=== PATIENT | male | born 2000 | race Caucasian/White ===

== ENCOUNTER 2021-02-04 20:24 | Emergency (ER) | payer OTHER ==
[~2021-02-04] VITALS: Ht 175.3 cm; Wt 81.6 kg
[2021-02-04 20:25] VITALS: BP 158/70
== END 2021-02-04 23:09 | disposition short-term general hospital (02) ==
LOC: EDBD 20:24 → ER 20:28 → EEVIPCON 20:28 → ER 23:09
DX: S09.8XXA Other specified injuries of head, initial encounter (principal); Y08.89XA Assault by other specified means, initial encounter; Y93.89 Activity, other specified; Y92.89 Other specified places as the place of occurrence of the external cause; Y99.8 Other external cause status